=== PATIENT | male | born 1980 ===

== ENCOUNTER 2018-11-13 13:53 | Emergency (ER) | payer OTHER ==
[2018-11-13 14:34] VITALS: BP 119/76; RESP 18; BMI 27.3
[2018-11-13] MEDS ORDERED: Lidocaine 5% Patch TD STA (15:13)
[2018-11-13] MEDS ORDERED: Lidocaine 5% Patch TD ONE (15:28)
--- NOTE | 2018-11-13 15:56 | C.PDOC ---
History Of Present Illness 38 year old male presents to the emergency department with complaints of lower back pain for the last two days. Patient states that the pain is worse when he walks and moves. He denies heavy lifting, radiation of pain to legs, incontinence, weakness, and numbness. Patient states that he took Naproxen and used a lidocaine patch with no relief of symptoms. Patient states that the pain is 9/10 in severity. Patient reports a PMHx of panic attacks, denies PSHx. Patient's PMD is Dr. Oneil Ramey. Time Seen by Provider: 11/13/18 15:02 Chief Complaint (Nursing): Back Pain History Per: Patient History/Exam Limitations: no limitations Onset/Duration Of Symptoms: Days (2) Current Symptoms Are (Timing): Still Present Quality Of Discomfort: "Pain" Pain Scale Rating Of: 9 Associated Symptoms: None. denies: Incontinence, New Weakness, New Numbness Past Medical History Vital Signs: Last Vital Signs Temp 98.8 F 11/13/18 14:29 Pulse 81 11/13/18 14:29 Resp 18 11/13/18 14:29 BP 119/76 11/13/18 14:29 Pulse Ox 97 11/13/18 14:29 - Medical History PMH: Anxiety (Panic attacks), Depression Family History: States: Unknown Family Hx - Social History Hx Alcohol Use: No Hx Substance Use: No - Immunization History Hx Tetanus Toxoid Vaccination: No Hx Influenza Vaccination: No Hx Pneumococcal Vaccination: No Review Of Systems Except As Marked, All Systems Reviewed And Found Negative. Constitutional: Negative for: Fever, Chills Gastrointestinal: Negative for: Nausea, Vomiting, Abdominal Pain, Diarrhea Genitourinary: Negative for: Dysuria, Frequency, Incontinence Musculoskeletal: Positive for: Back Pain Neurological: Negative for: Weakness, Numbness Physical Exam - Physical Exam Appears: Non-toxic, No Acute Distress Skin: Normal Color, Warm, Dry Head: Atraumatic, Normacephalic Eye(s): bilateral: Normal Inspection, PERRL, EOMI Oral Mucosa: Moist Neck: Normal, Supple Chest: Symmetrical, No Tenderness Cardiovascular: Rhythm Regular, No Murmur Respiratory: Normal Breath Sounds, No Rales, No Rhonchi, No Wheezing Gastrointestinal/Abdominal: Soft, No Tenderness, No Guarding, No Rebound Back: Vertebral Tenderness (mild lower back tenderness, midline) Extremity: Normal ROM Neurological/Psych: Oriented x3, Normal Speech, Normal Cognition ED Course And Treatment O2 Sat by Pulse Oximetry: 97 (RA) Pulse Ox Interpretation: Normal Medical Decision Making Medical Decision Making: Plan: Lidoderm Patch Toradol 15mg IM Tylenol 975mg PO Valium 5mg PO Disposition - Disposition Referrals: Oneil Ramey MD [Staff Provider] - Disposition: HOME/ ROUTINE Disposition Time: 16:43 Condition: IMPROVED Additional Instructions: Mr. Jackson, thank you for letting us take care of you today. Return to the ER if your symptoms worsen, or if any problems. Take the medication listed below as prescribed. Follow up with Dr. Oneil Ramey in 2-3 days for a re-evaluation. Prescriptions: Acetaminophen [Tylenol] 3 tab PO Q6 PRN #60 capsule PRN Reason: Pain, Moderate (4-7) diaZEpam [Valium] 1 tab PO Q8 PRN #12 tab PRN Reason: Muscle Spasm Ibuprofen [Motrin Tab] 1 tab PO TID PRN #30 tab PRN Reason: Pain, Moderate (4-7) Lidocaine 5% [Lidoderm] 1 ea TD Q12 PRN #14 patch PRN Reason: Pain, Moderate (4-7) Instructions: Low Back Pain (DC) Forms: [employer] (Welsh) Print Language: TUNISIAN - POA Present On Arrival: None - Clinical Impression Clinical Impression: Low back pain - Scribe Statement The provider has reviewed the documentation as recorded by the Scribe (Marty Cee) Provider Attestation: All medical record entries made by the Scribe were at my direction and personally dictated by me. I have reviewed the chart and agree that the record accurately reflects my personal performance of the history, physical exam, medical decision making, and the department course for this patient. I have also personally directed, reviewed, and agree with the discharge instructions and disposition.
[2018-11-13 17:02] VITALS: PULSE 77; TEMP 98; O2SAT 100
== END 2018-11-13 17:00 | disposition home or self-care (01) ==
LOC: C.ER 13:53
DX: M54.5 Low back pain (principal)
CPT/HCPCS: 96372; 99284; J1885